=== PATIENT | female | born 1960 | race African-American/Black ===

== ENCOUNTER 2019-08-24 10:16 | Emergency (ER) | payer OTHER, MEDICARE ==
[2019-08-24] MEDS ORDERED: OXYCODONE-ACETAMINOPHEN 5-325 MG TABLET PO ONE (10:47)
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
[2019-08-24 15:33] VITALS: BP 135/75
== END 2019-08-24 15:34 | disposition home or self-care (01) ==
LOC: ER 10:16
DX: S70.02XA Contusion of left hip, initial encounter (principal); S16.1XXA Strain of muscle, fascia and tendon at neck level, initial encounter; V43.52XA Car driver injured in collision with other type car in traffic accident, initial encounter; R20.0 Anesthesia of skin; R11.0 Nausea; I10 Essential (primary) hypertension; Z79.899 Other long term (current) drug therapy; Z79.82 Long term (current) use of aspirin
CPT/HCPCS: 70450; 72125; 99284